=== PATIENT | male | born 1980 | race African-American/Black ===

== ENCOUNTER 2021-06-30 23:48 | Emergency (ER) | payer MEDICAID ==
[2021-07-01] MEDS ORDERED: cefTRIAXone 250 MG Vial IM ONE (00:53)
[2021-07-01] MEDS ORDERED: Azithromycin 250 MG Tab PO ONE (00:53)
--- NOTE | 2021-07-01 01:16 | EDM.PDOC ---
ED HPI GENERAL MEDICAL PROBLEM - General Chief Complaint: Genitourinary Problem Stated Complaint: BURNING WHILE URINATING/ GROIN PAIN Time Seen by Provider: 07/01/21 00:15 Source of Information: Reports: Patient History Limitations: Reports: No Limitations - History of Present Illness INITIAL COMMENTS - FREE TEXT/NARRATIVE: Patient is a 40-year-old male presenting to the emergency room with chief complaint of dysuria and penile discharge. Patient reports several days of symptoms. Patient is but is not had intercourse with his for over 1 month. He states he is sexually active with another person. He reports not using protection. Patient otherwise denies fevers, chills, abdominal pain, flank pain. Reports prior history of STI a long time ago. No treatment for this at this point. Left Groin Pain Score (Numeric/FACES): 5 - Related Data Allergies Allergy/AdvReac Type Severity Reaction Status Date / Time No Known Allergies Allergy Verified 07/01/21 00:31 Home Meds: Home Meds . [No Known Home Meds] 07/01/21 [History] Past Medical History Cardiovascular History: Reports: Congenital Septal Defect, Hypertension Social & Family History - Tobacco Use Tobacco Use Status *Q: Unknown Ever Used Tobacco ED ROS GENERAL - Review of Systems Review Of Systems: Comprehensive ROS is negative, except as noted in HPI. ED EXAM, RENAL/ - Physical Exam Exam: See Below Text/Narrative:: I have reviewed the triage vital signs Const: Well nourished, well developed, appears stated age Eyes: Pupils Equal and reactive to light bilaterally, no conjunctival injection HENT: No signs of trauma or swelling, Neck supple without meningismus CV: Regular Rate Rhythm, Warm, well-perfused extremities RESP: Unlabored respiratory effort GI: soft, non-tender, non-distended, no masses : Mild inguinal lymphadenopathy bilaterally. No rashes or lesions in the groin area. Testicles are non-tender or swollen. (AAMIR Bar present for examination.) MSK: No gross deformities appreciated Skin: Warm, dry. No rashes Neuro: Alert, exchange architect II-XII grossly intact. Sensation and motor function of extremities grossly intact. Psych: Appropriate mood and affect. Course - Vital Signs Last Recorded V/S: Last Vital Signs Temp 36.8 C 06/30/21 23:57 Pulse 108 H 06/30/21 23:57 Resp 15 06/30/21 23:57 BP 179/99 H 06/30/21 23:57 Pulse Ox 96 06/30/21 23:57 - Orders/Labs/Meds Labs: Laboratory Tests 07/01/21 07/01/21 07/01/21 Range/Units 00:32 00:32 01:14 Urine Color Yellow (Yellow) Urine Appearance Clear (Clear) Urine pH 6.0 (5.0-8.0) Ur Specific Worth 1.015 (1.005-1.030) Urine Protein Negative (Negative) Urine Glucose (UA) Negative (Negative) Urine Ketones Negative (Negative) Urine Occult Blood Trace-intact H (Negative) Urine Nitrite Negative (Negative) Urine Bilirubin Negative (Negative) Urine Urobilinogen 0.2 (0.2-1.0) Ur Leukocyte Esterase 2+ H (Negative) Urine RBC 0-5 (0-5) /hpf Urine WBC 5-10 H (0-5) /hpf Ur Squamous Epith Cells 0-5 (0-5) /hpf Urine Bacteria Rare (FEW) /hpf Urine Mucus Rare (FEW) /hpf HIV-1 Ab Rapid Screen Negative (NEGATIVE) C trachomatis DNA (PCR) Not detected N gonorrhoeae DNA (PCR) Detected H Meds: Medications Discontinued Medications Generic Name Dose Route Start Last Admin Trade Name Freq PRN Reason Stop Dose Admin Azithromycin 1,000 mg 07/01/21 00:53 07/01/21 01:00 Azithromycin 250 Mg Tab PO 07/01/21 00:54 1,000 mg ONETIME ONE Administration Ceftriaxone Sodium 250 mg 07/01/21 00:53 07/01/21 01:00 Ceftriaxone 250 Mg Vial IM 07/01/21 00:54 250 mg ONETIME ONE Administration Departure - Departure Time of Disposition: 02:21 Disposition: Home, Self-Care 01 Clinical Impression: Urethritis, gonococcal, acute - Discharge Information Referrals: PCP,None [Primary Care Provider] - Forms: ED Department Discharge Sepsis Event Note (ED) - Evaluation Sepsis Screening Result: No Definite Risk - Focused Exam Vital Signs: Vital Signs Temp Pulse Resp BP Pulse Ox 06/30/21 23:57 36.8 C 108 H 15 179/99 H 96 - Assessment/Plan Assessment:: Is 40-year-old male presenting to the emergency room with penile discharge. Patient had unremarkable exam and course was benign. Patient does have positive for gonorrhea. Patient received ceftriaxone and azithromycin in the emergency room. Patient was given education regarding this diagnosis and informed that he should tell all partners regarding this positive test. Return precautions discussed as usual. Patient agrees with plan of care.
[2021-07-01 02:13] LABS: C. TRACHOMATIS BY PCR NOT DETECTED; N. GONORRHOEAE BY PCR DETECTED
== END 2021-07-01 02:36 | disposition home or self-care (01) ==
LOC: JD.ED 23:48
DX: A54.01 Gonococcal cystitis and urethritis, unspecified (principal)
CPT/HCPCS: 36415; 81001; 87449; 87491; 87591; 96372; 99283; A9270; J0696; G0433

== ENCOUNTER 2021-07-02 23:04 | Emergency (ER) | payer MEDICAID ==
--- NOTE | 2021-07-02 23:38 | EDM.PDOC ---
ED HPI GENERAL MEDICAL PROBLEM - General Chief Complaint: Chest Pain Stated Complaint: CHEST PAIN Time Seen by Provider: 07/02/21 23:13 Source of Information: Reports: Patient History Limitations: Reports: No Limitations - History of Present Illness INITIAL COMMENTS - FREE TEXT/NARRATIVE: Mr. Boland is a very pleasant 48-year-old gentleman who now presents the ED stating that he developed retrosternal chest pain, a pressure-like pain, not a discomfort, around 16:00 this afternoon, while he was working. The pain does not radiate. He states that the pain has been constant, and that he has not identified any modifiers. He reports a slight amount of associated nausea, but denies associated dyspnea, diaphoresis, or sense of impending doom. The patient states that he has had this same pain countless times since he was 4 years old. He states that it recurs about twice a year, most recently in November or December of this year. 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 He states that this is left him with an "enlarged heart", but that he does not have CHF. When he gets the pain, he states that he is usually kept overnight and given a stress test in the morning. Only once was a stress test positive. He states that he has undergone 3 coronary angiograms, most recently in 2019, in [place]. He states that all of his coronary angiograms have been "clean". He states that his doctors cannot tell him exactly why he has the pain, but believe it is due to emotional stress. The patient did not take any [id number] or home remedies since the onset of his symptoms at this afternoon. Here in the ED, the patient's initial BP is found to be elevated at 168/88, with slight tachypnea of 25 rpm. He is otherwise hemodynamically stable, afebrile, saturating 99% on room air. He appears to be somewhat anxious, although in no acute distress. Medical records indicate that the patient was seen in this ED yesterday, 07/01/2021 with dysuria. He was diagnosed with gonorrhea urethritis, and treated with 1 g of oral azithromycin and 2050 mg of IM ceftriaxone. Otherwise, prior to this afternoon, the patient denies having a recent fever, chills, sore throat, ear pain, nasal or sinus congestion, cough, dyspnea, chest pain, palpitations, nausea, vomiting, constipation, diarrhea, abdominal pain, recent weight gain or weight loss, recent bloody bowel movements or black bowel movements, recent joint aches, headaches, or rashes. The patient lives in [place], but has been working in this area for about 3 weeks. He may return to [place] in about 2 months, but is not sure. He states that he received a single J&J COVID vaccination. 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 Coronary angiogram x 3, last around 2019, all clean.) Male Surgical History: Reports: Vasectomy Social & Family History - Tobacco Use Tobacco Use Status *Q: Never Tobacco User - Caffeine Use Caffeine Use: Reports: None - Alcohol Use Alcohol Use History: Yes Alcohol Use Frequency: Socially - Recreational Drug Use Recreational Drug Use: No - Living Situation & Occupation Living situation: Reports: () Occupation: Employed ([employer]) ED ROS GENERAL - Review of Systems Review Of Systems: Comprehensive ROS is negative, except as noted in HPI. ED EXAM, GENERAL - Physical Exam Exam: See Below Exam Limited By: No Limitations General Appearance: Alert, WD/WN, No Apparent Distress Eye Exam: Bilateral Eye: EOMI, Normal Inspection Ears: Normal External Exam, Hearing Grossly Normal Nose: Normal Inspection Throat/Mouth: Normal Inspection, Normal Lips, Normal Voice, No Airway Compromise Head: Atraumatic, Normocephalic Neck: Normal Inspection, Full Range of Motion Respiratory/Chest: No Respiratory Distress, Lungs Clear, Normal Breath Sounds, No Accessory Muscle Use Cardiovascular: Normal Peripheral Pulses, Regular Rate, Rhythm, No Edema, No Gallop, No JVD, No Murmur, No Rub Peripheral Pulses: 3+: Radial (L), Radial (R) GI/Abdominal: Normal Bowel Sounds, Soft, Non-Tender, No Organomegaly, No Distention, No Abnormal Bruit, No Mass Back Exam: Normal Inspection, Full Range of Motion, NT Extremities: Normal Inspection, Normal Range of Motion, No Pedal Edema, Normal Capillary Refill Neurological: Alert, Oriented, Normal Cognition, No Motor/Sensory Deficits Psychiatric: Normal Affect Skin Exam: Warm, Dry, Intact, Normal Color, No Rash #1 Interpretation EKG Date: 07/02/21 Time: 23:12 Rhythm: NSR (with frequent PACs) Rate (Beats/Min): 84 Huntington: LAD-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07) K/mm3 RBC 4.75 (4.63-6.08) M/mm3 Hgb 12.5 L (13.7-17.5) gm/dl Hct 35.7 L (40.1-51.0) % MCV 75.2 L (79.0-92.2) fl MCH 26.3 (25.7-32.2) pg MCHC 35.0 (32.2-35.5) g/dl RDW Std Deviation 38.6 (35.1-43.9) fL Plt Count 223 (163-337) K/mm3 MPV 10.1 (9.4-12.3) fl Neutrophils % (Manual) 52 (40-60) % Band Neutrophils % 0 (0-10) % Lymphocytes % (Manual) 36 (20-40) % Atypical Lymphs % 0 % Monocytes % (Manual) 10 (2-10) % Eosinophils % (Manual) 2 (0.8-7.0) % Basophils % (Manual) 0 L (0.2-1.2) Platelet Estimate Adequate Target Cells 1+ slight Stomatocytes 1+ slight RBC Morph Comment Not Reportable Sodium 143 (136-145) mEq/L Potassium 3.4 L (3.5-5.1) mEq/L Chloride 107 (98-107) mEq/L Carbon Dioxide 26 (21-32) mEq/L Anion Gap 13.4 (5-15) BUN 8 (7-18) mg/dL Creatinine 1.3 (0.7-1.3) mg/dL Est Cr Clr Drug Dosing 82.91 mL/min Estimated GFR (MDRD) > 60 (>60) mL/min BUN/Creatinine Ratio 6.2 L (14-18) Glucose 112 H (70-99) mg/dL Calcium 8.4 L (8.5-10.1) mg/dL Total Bilirubin 0.5 (0.2-1.0) mg/dL AST 12 L (15-37) U/L ALT 17 (16-63) U/L Alkaline Phosphatase 54 (46-116) U/L Troponin I < 0.017 (0.00-0.056) ng/mL Total Protein 7.4 (6.4-8.2) g/dl Albumin 3.7 (3.4-5.0) g/dl Globulin 3.7 gm/dL Albumin/Globulin Ratio 1.0 (1-2) Meds: Medications Discontinued Medications Generic Name Dose Route Start Last Admin Trade Name Freq PRN Reason Stop Dose Admin Famotidine 40 mg 07/03/21 00:01 Famotidine 20 Mg Tab PO 07/03/21 00:02 ONETIME STA - Re-Assessments/Exams Free Text/Narrative Re-Assessment/Exam: 07/02/21 23:33 An ECG, obtained at triage, shows some diffuse J-point elevation, but no T wave inversions or other signs of ischemia. I have ordered several blood tests and a chest x-ray. 07/02/21 23:55 Two-view chest radiograph reviewed. The cardiac silhouette is at the upper limits of normal. No pulmonary vascular congestion. No pleural effusions. No focal infiltrate, although there is some hazy scarring at the right heart border. No pneumothorax. Formal read per the Radiologist pending. The patient's CBC is remarkable for an H/H slightly depressed at 12.5/35.7, with remainder of his CBC being unremarkable. His CMP is unremarkable. His troponin is undetectably low. 07/03/21 00:01 Test results discussed with the patient. As above, today's work-up is completely unremarkable. I cannot say with certainty what the cause of his chest pain is, but I can say that it is not cardiac in etiology. Statistically speaking, GERD is the most likely cause, therefore he will be started on fam otidine here in the ED, and I am recommending that he begin taking 1 tablet of OTC famotidine twice a day for the next week. If that helps his symptoms, he can continue on it at 1 tablet once a day. I will also refer him to the clinic so that he can establish a PCP and get restarted on his antihypertensive medication. Departure - Departure Time of Disposition: 00:02 Disposition: Home, Self-Care 01 Condition: Good Clinical Impression: Non-cardiac chest pain - Discharge Information *PRESCRIPTION DRUG MONITORING PROGRAM REVIEWED*: Not Applicable *COPY OF PRESCRIPTION DRUG MONITORING REPORT IN PATIENT TUCKER: Not Applicable Instructions: Nonspecific Chest Pain, Adult, [id number] Referrals: PCP,None [Primary Care Provider] - Joanne Campbell NP [Nurse Practitioner] - Forms: ED Department Discharge Additional Instructions: You were seen in the emergency room after developing chest pain around 4:00 this afternoon, the same chest pain that you have been experiencing since you were 4 years old. Work-up in the ER included several blood tests, a chest x-ray, and an ECG. Your entire work-up was unremarkable. You have not suffered a heart attack. You do not have pneumonia. You are not anemic. No electrolyte abnormalities were found. The cause of your chest pain is not clear, but we cannot say that it is not due to your heart. Specifically speaking, the most common cause of chest pain is acid reflux, also known as GERD. For this reason, you have been started on the antacid famotidine (Pepcid). Famotidine is available [id number], and generic famotidine is just as good as name-brand Pepcid AC. We recommend that you take 1 tablet of famotidine twice a day for 1 week. If that takes care of your symptoms, you may continue it at 1 tablet once a day, but if your pain returns, you can go back to 1 tablet twice a day. Please follow-up with Joanne Campbell NP, or one of the other providers in the clinic, to establish a PCP. They can prescribe your blood pressure medicine. If any other problems, please do not hesitate to return to the ER. Sepsis Event Note (ED) - Evaluation Sepsis Screening Result: No Definite Risk - Focused Exam Vital Signs: Vital Signs Temp Pulse Resp BP Pulse Ox 07/02/21 23:11 35.8 C L 92 25 H 168/88 H 99 - My Orders Last 24 Hours: My Active Orders 07/02/21 23:32 Chest 2V [CR] Stat - Assessment/Plan Last 24 Hours: My Active Orders 07/02/21 23:32 Chest 2V [CR] Stat
[2021-07-03] MEDS ORDERED: Famotidine 20 MG Tab PO STA (00:01)
--- NOTE | 2021-07-03 07:14 | CR ---
Chest: 2 views of the chest were obtained. Comparison: No prior chest imaging is available. Heart size and mediastinum are normal. Lungs are clear with no acute parenchymal change. Bony structures are within normal limits for the patient's age. Impression: 1. Nothing acute is seen on 2-view chest x-ray. Diagnostic code #1
== END 2021-07-03 00:15 | disposition home or self-care (01) ==
LOC: JD.ED 23:04
DX: R07.2 Precordial pain (principal); I11.9 Hypertensive heart disease without heart failure; Z79.899 Other long term (current) drug therapy
CPT/HCPCS: 36415; 71046; 71046-26; 80053; 84484; 85007; 85027; 93005; 99285-25; A9270-GY

== ENCOUNTER 2021-07-05 22:58 | Emergency (ER) | payer MEDICAID ==
[2021-07-06] MEDS ORDERED: cefTRIAXone 250 MG Vial IM ONE (01:00)
--- NOTE | 2021-07-06 01:03 | EDM.PDOC ---
ED HPI GENERAL MEDICAL PROBLEM - General Chief Complaint: Genitourinary Problem Stated Complaint: GROIN PAIN Time Seen by Provider: 07/06/21 00:50 - History of Present Illness INITIAL COMMENTS - FREE TEXT/NARRATIVE: Patient is 40-year-old male with past medical history of hypertension presenting with a chief complaint of urinary frequency. Patient treated on July 02 for gonococcal urethritis. He was subsequently seen in the emergency room the following night for chest pain and had a negative work-up at that time. Since being treated with antibiotics, the patient noticed penile discharge has cleared up. However, he still has Right Groin Pain Score (Numeric/FACES): 9 - Related Data Allergies Allergy/AdvReac Type Severity Reaction Status Date / Time No Known Allergies Allergy Verified 07/05/21 23:19 Home Meds: Home Meds lisinopriL [Lisinopril] 10 mg PO DAILY 07/02/21 [History] Tamsulosin [Tamsulosin 24 Hr] 0.4 mg PO DAILY #7 cap.er 07/06/21 [Rx] Past Medical History Cardiovascular History: Reports: Cardiomyopathy, Hypertension Genitourinary History: Reports: STD Endocrine/Metabolic History: Reports: Other (See Below) Other Endocrine/Metabolic History: pre diabetic - Past Surgical History Cardiovascular Surgical History: Reports: Other (See Below) Other Cardiovascular Surgeries/Procedures: open heart surgery when 4 Male Surgical History: Reports: Vasectomy Social & Family History - Tobacco Use Tobacco Use Status *Q: Unknown Ever Used Tobacco - Caffeine Use Caffeine Use: Reports: None - Living Situation & Occupation Living situation: Reports: () Occupation: Employed ([employer]) ED ROS GENERAL - Review of Systems Review Of Systems: Comprehensive ROS is negative, except as noted in HPI. ED EXAM, RENAL/ - Physical Exam Exam: See Below Text/Narrative:: I have reviewed the triage vital signs Const: Well nourished, well developed, appears stated age Eyes: Pupils Equal and reactive to light bilaterally, no conjunctival injection HENT: No signs of trauma or swelling, Neck supple without meningismus CV: Regular Rate Rhythm, Warm, well-perfused extremities RESP: Unlabored respiratory effort GI: soft, non-tender, non-distended, no masses : AAMIR La present for examination. Slight right inguinal lymphadenopathy. No other is masses present. No change with Valsalva maneuver. No drainage or crepitus. Minimally tender. MSK: No gross deformities appreciated Skin: Warm, dry. No rashes Neuro: Alert, backend java developer II-XII grossly intact. Sensation and motor function of extremities grossly intact. Psych: Appropriate mood and affect. Course - Vital Signs Last Recorded V/S: Last Vital Signs Temp 35.9 C L 07/05/21 23:36 Pulse 76 07/05/21 23:36 Resp 15 07/05/21 23:36 BP 163/96 H 07/05/21 23:36 Pulse Ox 96 07/05/21 23:36 - Orders/Labs/Meds Orders: Active Orders 24 hr Category Date Time Status CULTURE URINE [MREF] Stat Lab 07/06/21 01:03 Received Meds: Medications Discontinued Medications Generic Name Dose Route Start Last Admin Trade Name Freq PRN Reason Stop Dose Admin Ceftriaxone Sodium 250 mg 07/06/21 01:00 07/06/21 01:14 Ceftriaxone 250 Mg Vial IM 07/06/21 01:01 250 mg ONETIME ONE Administration Departure - Departure Time of Disposition: 01:02 Disposition: Home, Self-Care 01 Clinical Impression: Urethritis - Discharge Information Prescriptions: Tamsulosin [Tamsulosin 24 Hr] 0.4 mg PO DAILY #7 cap.er Instructions: Urethritis, Adult Referrals: PCP,None [Primary Care Provider] - Forms: ED Department Discharge Additional Instructions: Please follow-up with primary care in several days to evaluate for your blood pressure as well as your urine culture results. You may also need to have further evaluation of your prostate. Return if symptoms worse, you develop high fevers or of any other emergent concerns. Sepsis Event Note (ED) - Evaluation Sepsis Screening Result: No Definite Risk - Focused Exam Vital Signs: Vital Signs Temp Pulse Resp BP Pulse Ox 07/05/21 23:36 35.9 C L 76 15 163/96 H 96 - My Orders Last 24 Hours: My Active Orders 07/06/21 01:03 CULTURE URINE [MREF] Stat - Assessment/Plan Last 24 Hours: My Active Orders 07/06/21 01:03 CULTURE URINE [MREF] Stat Assessment:: Patient is 40-year-old male presenting to the emergency room with chief complaint of urinary frequency. Patient able to void spontaneously in the emergency room. Exam is unremarkable for cellulitis or evidence of necrotizing infection. Alternative differential diagnosis considered for this patient include lymphadenopathy secondary gonorrhea urethritis, prostatitis as well as BPH. At current, patient has only received 250 mg of intramuscular ceftriaxone. We will administer a second dose at this 250 mg. This falls in line with current guidelines with increasing resistance. In addition, urine culture will be sent for further testing as well as patient will be started on Flomax to alleviate any possible prostate enlargement. Discharged in stable condition. Follow-up recommended and urged within the next 48 hours. Return precautions given. Patient agrees with plan.
== END 2021-07-06 01:14 | disposition home or self-care (01) ==
LOC: JD.ED 22:58
DX: N34.2 Other urethritis (principal); I11.9 Hypertensive heart disease without heart failure; Z79.899 Other long term (current) drug therapy
CPT/HCPCS: 87086; 96372; 99283; J0696

== ENCOUNTER 2021-07-19 01:08 | Emergency (ER) | payer MEDICAID ==
[2021-07-19] MEDS ORDERED: Aspirin 81 MG Tab.Chew PO ONE (01:32)
[2021-07-19] MEDS ORDERED: Sodium Chloride 0.9% 1,000 ML IV SCH (01:45)
[2021-07-19] MEDS: Nitroglycerin 0.4 MG Tab.SL SL PRN ×2 (01:46→01:58)
[2021-07-19] MEDS ORDERED: Ondansetron 4 MG/2 ML SDV IVPUSH ONE (01:50)
[2021-07-19] MEDS ORDERED: Potassium Chloride 20 MEQ Tab.ER PO ONE (02:09)
--- NOTE | 2021-07-19 02:20 | EDM.PDOC ---
ED HPI GENERAL MEDICAL PROBLEM - General Chief Complaint: Chest Pain Stated Complaint: CHEST PAIN Time Seen by Provider: 07/19/21 01:14 - History of Present Illness INITIAL COMMENTS - FREE TEXT/NARRATIVE: 40-year-old male presents the emergency room with chest pain. Patient states he has had chest pain on and off all day. This does not seem to get worse with walking upstairs or walking around. He did lift a pipe today and this did seem to aggravate it briefly. However the pain seems to be independent of activity. Patient does not smoke. 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 Patient has a history of hypertension he used to take lisinopril 10 mg a day but he has been off this for roughly a month. Patient recently moved here from [place]. Patient also states he has a history of abnormal heart tracings. He believes he had a stress test done about 4 to 5 years ago and does not recall it being abnormal. The patient was seen here a couple weeks ago with a similar complaint. Middle Chest Pain Score (Numeric/FACES): 8 - Related Data Allergies Allergy/AdvReac Type Severity Reaction Status Date / Time No Known Allergies Allergy Verified 07/19/21 01:27 Home Meds: Home Meds . [No Known Home Meds] 07/19/21 [History] Past Medical History Cardiovascular History: Reports: Cardiomyopathy, Hypertension Genitourinary History: Reports: STD Endocrine/Metabolic History: Reports: Other (See Below) Other Endocrine/Metabolic History: pre diabetic - Past Surgical History Cardiovascular Surgical History: Reports: Other (See Below) Other Cardiovascular Surgeries/Procedures: open heart surgery when 4 to repair "holes in heart" Male Surgical History: Reports: Vasectomy Social & Family History - Tobacco Use Tobacco Use Status *Q: Never Tobacco User - Caffeine Use Caffeine Use: Reports: None - Recreational Drug Use Recreational Drug Use: No - Living Situation & Occupation Living situation: Reports: () Occupation: Employed ([employer]) ED ROS GENERAL - Review of Systems Review Of Systems: See Below Constitutional: Reports: No Symptoms HEENT: Reports: No Symptoms Respiratory: Reports: No Symptoms Cardiovascular: Reports: No Symptoms Endocrine: Reports: No Symptoms GI/Abdominal: Reports: Nausea. Denies: No Symptoms, Abdominal Pain : Reports: No Symptoms Musculoskeletal: Reports: No Symptoms Skin: Reports: No Symptoms Neurological: Reports: No Symptoms ED EXAM, GENERAL - Physical Exam Exam: See Below Exam Limited By: No Limitations General Appearance: Alert, No Apparent Distress Head: Atraumatic, Normocephalic Neck: Normal Inspection, Supple, Non-Tender, Full Range of Motion Respiratory/Chest: No Respiratory Distress, Lungs Clear, Normal Breath Sounds Cardiovascular: Regular Rate, Rhythm, No Edema, No Murmur GI/Abdominal: Normal Bowel Sounds, Soft, Non-Tender Back Exam: Normal Inspection, Full Range of Motion, CVA Tenderness (L) Extremities: Non-Tender, No Pedal Edema Neurological: Alert, Oriented, Normal Cognition #1 Interpretation EKG Date: 07/19/21 Rhythm: NSR Rate (Beats/Min): 81 Kevin: Normal P-Wave: Absent (First-degree A-V block) QRS: Other (Poor R wave progression) ST-T: Other (ST elevation in lead V3 no reciprocal changes nonspecific nondiagnostic ST changes throughout. No abnormal T wave inversion except nearly isoelectric in aVL) QT: Normal Comparison: No Change (Significant change from 07/02/2021) EKG Interpretation Comments: Abnormal EKG Course - Vital Signs Last Recorded V/S: Last Vital Signs Temp 36.1 C 07/19/21 01:16 Pulse 84 07/19/21 01:16 Resp 17 07/19/21 01:16 BP 131/76 07/19/21 01:58 Pulse Ox 98 07/19/21 01:16 - Orders/Labs/Meds Orders: Active Orders 24 hr Category Date Time Status Chest 1V Frontal [CR] Stat Exams 07/19/21 01:34 Taken Nitroglycerin [Nitrostat] Med 07/19/21 01:32 Active 0.4 mg SL Q5M PRN Sodium Chloride 0.9% [Normal Saline] 1,000 ml Med 07/19/21 01:45 Active IV ASDIRECTED Medication Orders Sodium Chloride (Normal Saline) 1,000 mls @ 50 mls/hr IV ASDIRECTED MISBAH Last Admin: 07/19/21 01:44 Dose: 50 mls/hr Documented by: ABDIRAHMAN Nitroglycerin (Nitroglycerin 0.4 Mg Tab.Sl) 0.4 mg SL Q5M PRN PRN Reason: Chest Pain Last Admin: 07/19/21 01:58 Dose: 0.4 mg Documented by: Admin: 07/19/21 01:46 Dose: 0.4 mg Documented by: ABDIRAHMAN Labs: Laboratory Tests 07/19/21 07/19/21 07/19/21 Range/Units 01:25 01:25 01:25 WBC 5.59 (4.23-9.07) K/mm3 RBC 4.45 L (4.63-6.08) M/mm3 Hgb 11.6 L (13.7-17.5) gm/dl Hct 33.3 L (40.1-51.0) % MCV 74.8 L (79.0-92.2) fl MCH 26.1 (25.7-32.2) pg MCHC 34.8 (32.2-35.5) g/dl RDW Std Deviation 38.8 (35.1-43.9) fL Plt Count 194 (163-337) K/mm3 MPV 9.8 (9.4-12.3) fl Neut % (Auto) 50.2 (34.0-67.9) % Lymph % (Auto) 37.9 (21.8-53.1) % Edmunds % (Auto) 10.6 (5.3-12.2) % Eos % (Auto) 0.9 (0.8-7.0) Baso % (Auto) 0.2 (0.1-1.2) % Neut # (Auto) 2.81 (1.78-5.38) K/mm3 Lymph # (Auto) 2.12 (1.32-3.57) K/mm3 Edmunds # (Auto) 0.59 (0.30-0.82) K/mm3 Eos # (Auto) 0.05 (0.04-0.54) K/mm3 Baso # (Auto) 0.01 (0.01-0.08) K/mm3 PT 11.8 (9.7-12.0) SECONDS INR 1.07 APTT 29.5 (21.7-31.4) SECONDS Sodium 143 (136-145) mEq/L Potassium 3.3 L (3.5-5.1) mEq/L Chloride 108 H (98-107) mEq/L Carbon Dioxide 27 (21-32) mEq/L Anion Gap 11.3 (5-15) BUN 9 (7-18) mg/dL Creatinine 1.2 (0.7-1.3) mg/dL Est Cr Clr Drug Dosing 89.81 mL/min Estimated GFR (MDRD) > 60 (>60) mL/min BUN/Creatinine Ratio 7.5 L (14-18) Glucose 112 H (70-99) mg/dL Calcium 8.3 L (8.5-10.1) mg/dL Total Bilirubin 1.4 H (0.2-1.0) mg/dL AST 29 (15-37) U/L ALT 22 (16-63) U/L Alkaline Phosphatase 45 L (46-116) U/L Troponin I < 0.017 (0.00-0.056) ng/mL Total Protein 7.1 (6.4-8.2) g/dl Albumin 3.7 (3.4-5.0) g/dl Globulin 3.4 gm/dL Albumin/Globulin Ratio 1.1 (1-2) SARS-CoV-2 RNA (GINA) (NEGATIVE) 07/19/21 07/19/21 Range/Units 02:36 03:35 WBC (4.23-9.07) K/mm3 RBC (4.63-6.08) M/mm3 Hgb (13.7-17.5) gm/dl Hct (40.1-51.0) % MCV (79.0-92.2) fl MCH (25.7-32.2) pg MCHC (32.2-35.5) g/dl RDW Std Deviation (35.1-43.9) fL Plt Count (163-337) K/mm3 MPV (9.4-12.3) fl Neut % (Auto) (34.0-67.9) % Lymph % (Auto) (21.8-53.1) % Edmunds % (Auto) (5.3-12.2) % Eos % (Auto) (0.8-7.0) Baso % (Auto) (0.1-1.2) % Neut # (Auto) (1.78-5.38) K/mm3 Lymph # (Auto) (1.32-3.57) K/mm3 Edmunds # (Auto) (0.30-0.82) K/mm3 Eos # (Auto) (0.04-0.54) K/mm3 Baso # (Auto) (0.01-0.08) K/mm3 PT (9.7-12.0) SECONDS INR APTT (21.7-31.4) SECONDS Sodium (136-145) mEq/L Potassium (3.5-5.1) mEq/L Chloride (98-107) mEq/L Carbon Dioxide (21-32) mEq/L Anion Gap (5-15) BUN (7-18) mg/dL Creatinine (0.7-1.3) mg/dL Est Cr Clr Drug Dosing mL/min Estimated GFR (MDRD) (>60) mL/min BUN/Creatinine Ratio (14-18) Glucose (70-99) mg/dL Calcium (8.5-10.1) mg/dL Total Bilirubin (0.2-1.0) mg/dL AST (15-37) U/L ALT (16-63) U/L Alkaline Phosphatase (46-116) U/L Troponin I < 0.017 (0.00-0.056) ng/mL Total Protein (6.4-8.2) g/dl Albumin (3.4-5.0) g/dl Globulin gm/dL Albumin/Globulin Ratio (1-2) SARS-CoV-2 RNA (GINA) Negative (NEGATIVE) Meds: Medications Generic Name Dose Route Start Last Admin Trade Name Freq PRN Reason Stop Dose Admin Sodium Chloride 1,000 mls @ 50 mls/hr 07/19/21 01:45 07/19/21 01:44 Normal Saline IV 50 mls/hr ASDIRECTED MISBAH Administration Nitroglycerin 0.4 mg 07/19/21 01:32 07/19/21 01:58 Nitroglycerin 0.4 Mg Tab.Sl SL 0.4 mg Q5M PRN Administration Chest Pain Discontinued Medications Generic Name Dose Route Start Last Admin Trade Name Freq PRN Reason Stop Dose Admin Aspirin 324 mg 07/19/21 01:32 07/19/21 01:44 Aspirin 81 Mg Tab.Chew PO 07/19/21 01:33 324 mg ONETIME ONE Administration Ondansetron HCl 4 mg 07/19/21 01:50 07/19/21 01:53 Ondansetron 4 Mg/2 Ml Sdv IVPUSH 07/19/21 01:51 4 mg ONETIME ONE Administration Potassium Chloride 40 meq 07/19/21 02:09 07/19/21 02:36 Potassium Chloride 20 Meq Tab.Er PO 07/19/21 02:10 40 meq ONETIME ONE Administration - Re-Assessments/Exams Free Text/Narrative Re-Assessment/Exam: 07/19/21 05:57 Patient was given nitro x2 here in the emergency department as well as chewed aspirin. His pain dropped to a 2 or less and the patient remained symptom-free. Discussed potential admission this was declined. I kept the patient for a second troponin this was negative. The patient promises me he will follow up in the hospital clinic to discuss getting restarted on his blood pressure medication and if he would benefit from a provocative stress test with images either ultrasound or nuclear medicine. Departure - Departure Time of Disposition: 05:59 Disposition: Home, Self-Care 01 Clinical Impression: Chest pain - Discharge Information Referrals: PCP,None [Primary Care Provider] - Forms: ED Department Discharge Additional Instructions: Return to the emergency room with any questions problems or worsening symptoms. Take a baby aspirin daily this is 81 mg preferably enteric-coated. Follow-up in the hospital clinic this next week for recheck their phone number is [phone] establish for routine health care and discussed whether you would benefit from a cardiac stress test. Sepsis Event Note (ED) - Evaluation Sepsis Screening Result: No Definite Risk - Focused Exam Vital Signs: Vital Signs Temp Pulse Resp BP BP Pulse Ox 07/19/21 01:58 131/76 07/19/21 01:46 132/85 07/19/21 01:16 36.1 C 84 17 154/91 H 98 - My Orders Last 24 Hours: My Active Orders 07/19/21 01:32 Nitroglycerin [Nitrostat] 0.4 mg SL Q5M PRN 07/19/21 01:34 Chest 1V Frontal [CR] Stat 07/19/21 01:45 Sodium Chloride 0.9% [Normal Saline] 1,000 ml IV ASDIRECTED - Assessment/Plan Last 24 Hours: My Active Orders 07/19/21 01:32 Nitroglycerin [Nitrostat] 0.4 mg SL Q5M PRN 07/19/21 01:34 Chest 1V Frontal [CR] Stat 07/19/21 01:45 Sodium Chloride 0.9% [Normal Saline] 1,000 ml IV ASDIRECTED
--- NOTE | 2021-07-19 07:02 | CR ---
Chest: Portable view of the chest was obtained. Comparison: Prior chest x-ray of 07/02/21. Heart size and mediastinum are normal. Lungs are clear with no acute parenchymal change. Bony structures show nothing acute. Impression: 1. Nothing acute is seen on portable chest x-ray. Diagnostic code #1
== END 2021-07-19 06:10 | disposition home or self-care (01) ==
LOC: JD.ED 01:08
DX: R07.9 Chest pain, unspecified (principal); I10 Essential (primary) hypertension; I44.0 Atrioventricular block, first degree; Z20.822 Contact with and (suspected) exposure to COVID-19
CPT/HCPCS: 36415; 71045; 80053; 84484; 85025; 85610; 85730; 87635; 93005; 96374; 99285; A9270; J2405; J7030; U0002